=== PATIENT | male | born 1965 | race Caucasian/White ===

== ENCOUNTER 2019-03-12 14:46 | Emergency (ER) | payer MEDICARE ==
[~2019-03-12] VITALS: Ht 177.8 cm; Wt 65.3 kg
[~2019-03-12 14:46] MED LIST: ASPIRIN 81M81 MG/TA2 PO; XANAX 0.5MG0.5 MG PO
[2019-03-12] MEDS ORDERED: TYLENOL325 M1 PO (15:08)
[2019-03-12 15:37] LABS: EOS # 0.2 (0.04-0.40); EOS % 3.3 % (0.0-4.0); HEMATOCRIT 41.6 % (42.0-52.0); LYMPH# 2.7 (1.50-4.00); MEAN CELL VOLUME 92 fl (78-100); MEAN CORPUSCULAR HEMOGLOBIN 31 pg (27-31); MEAN CORPUSCULAR HGB CONC 34 g/dL (33-37); MEAN PLATELET VOLUME 9.5 fl (7.4-10.4); MONO # 0.6 (0.20-0.80); NEU # 3.7 (1.40-6.50); PLATELET COUNT 231 K/mm3 (130-400); RED BLOOD COUNT 4.54 M/mm3 (4.20-5.60); RED CELL DISTRIBUTION WIDTH 12.6 % (11.5-14.5); WHITE BLOOD COUNT 7.2 K/mm3 (4.8-10.8)
[2019-03-12 15:43] LABS: ALBUMIN 4.2 g/dL (3.5-5.0)
[2019-03-12 15:44] LABS: SODIUM 140 mmol/L (136-145)
[2019-03-12 15:45] LABS: CALCIUM 9.2 mg/dL (8.3-10.5)
[2019-03-12 15:46] LABS: GLUCOSE 96 mg/dL (75-110); TOTAL PROTEIN 7.1 g/dL (6.4-8.3)
[2019-03-12 15:47] LABS: CARBON DIOXIDE 24 mmol/L (22-29)
[2019-03-12 15:48] LABS: TOTAL BILIRUBIN 0.8 mg/dL (0.2-1.2)
[2019-03-12 15:51] LABS: AST-SGOT 16 U/L (5-34)
[2019-03-12 15:53] LABS: ALT/SGPT 14 U/L (0-55)
[2019-03-12 15:53] LABS: URINE APPEARANCE CLEAR; URINE BILIRUBIN NEGATIVE (NEGATIVE); URINE BLOOD TRACE (NEGATIVE); URINE COLOR YELLOW; URINE GLUCOSE NEGATIVE (NEGATIVE); URINE KETONE NEGATIVE (NEGATIVE); URINE LEUKOCYTE ESTERASE NEGATIVE (NEGATIVE); URINE NITRATE NEGATIVE (NEGATIVE); URINE PROTEIN(semi-quant) TRACE mg/dL (NEGATIVE); URINE UROBILINOGEN NORMAL (NORMAL)
[2019-03-12 15:54] LABS: URINE MUCUS PRESENT (NOT PRESENT); URINE WBC 0-1 /hpf (0-3)
[2019-03-12 16:02] LABS: TROPONIN-I < 0.03 ng/mL (<0.030)
[2019-03-12] MEDS ORDERED: PREDNISONE20 M1 PO (16:49)
[2019-03-12] MEDS ORDERED: CYCLOBENZAPRINE10 M1 PO (16:49)
[2019-03-12 17:07] VITALS: BP 117/76
== END 2019-03-12 17:08 | disposition home or self-care (01) ==
LOC: ED 14:46
PROVIDERS: Physician Assistant
DX: M54.10 Radiculopathy, site unspecified (principal); M54.5 Low back pain; R55 Syncope and collapse; H91.90 Unspecified hearing loss, unspecified ear; F17.210 Nicotine dependence, cigarettes, uncomplicated; Z79.82 Long term (current) use of aspirin; W10.9XXA Fall (on) (from) unspecified stairs and steps, initial encounter; Y99.0 Civilian activity done for income or pay
CPT/HCPCS: J1885; J2360; L0172; Q9967

== ENCOUNTER → 2019-07-01 | Outpatient (CLI) | payer MEDICARE ==
[~2019-07-01] MED LIST changes: +CYCLOBENZAPRINE10 M1 PO; +PREDNISONE20 M1 PO; +TYLENOL325 M1 PO
== END ==
LOC: RAD 09:00
DX: M54.5 Low back pain (principal); R31.29 Other microscopic hematuria

== ENCOUNTER 2020-07-22 12:18 | Emergency (ER) | payer MEDICARE ==
[2020-07-22 13:01] LABS: BASO # 0.02 (0.02-0.10); EOS # 0.25 (0.04-0.40); EOS % 3.7 % (0.0-4.0); HEMATOCRIT 41.4 % (42.0-52.0); LYMPH# 2.46 (1.50-4.00); MEAN CELL VOLUME 92 fl (78-100); MEAN CORPUSCULAR HEMOGLOBIN 31 pg (27-31); MEAN CORPUSCULAR HGB CONC 34 g/dL (33-37); MEAN PLATELET VOLUME 9.1 fl (7.4-10.4); MONO # 0.55 (0.20-0.80); NEU # 3.47 (1.40-6.50); PLATELET COUNT 211 K/mm3 (130-400); RED CELL DISTRIBUTION WIDTH 11.8 % (11.5-14.5); WHITE BLOOD COUNT 6.8 K/mm3 (4.8-10.8)
[2020-07-22 13:10] LABS: ALBUMIN 4.3 g/dL (3.5-5.0)
[2020-07-22 13:11] LABS: SODIUM 140 mmol/L (136-145)
[2020-07-22 13:13] LABS: GLUCOSE 98 mg/dL (75-110); TOTAL PROTEIN 7.1 g/dL (6.4-8.3)
[2020-07-22 13:14] LABS: CARBON DIOXIDE 24 mmol/L (22-29)
[2020-07-22 13:15] LABS: TOTAL BILIRUBIN 1.2 mg/dL (0.2-1.2)
[2020-07-22 13:18] LABS: AST-SGOT 18 U/L (5-34)
[2020-07-22 13:20] LABS: ALT/SGPT 14 U/L (0-55)
[2020-07-22 13:25] LABS: TROPONIN-I < 0.03 ng/mL (<0.030)
[2020-07-22 13:49] LABS: D-DIMER 0.26 mg/L FEU (0.15-0.50)
[2020-07-22 14:27] LABS: URINE APPEARANCE CLEAR; URINE BILIRUBIN NEGATIVE (NEGATIVE); URINE BLOOD 50 ery/uL (NEGATIVE); URINE COLOR YELLOW; URINE GLUCOSE NEGATIVE (NEGATIVE); URINE KETONE NEGATIVE (NEGATIVE); URINE LEUKOCYTE ESTERASE TRACE (NEGATIVE); URINE NITRATE NEGATIVE (NEGATIVE); URINE PROTEIN(semi-quant) 1+ mg/dL (NEGATIVE); URINE UROBILINOGEN NORMAL (NORMAL)
[2020-07-22 14:28] LABS: URINE MUCUS PRESENT (NOT PRESENT)
[2020-07-22 18:59] LABS: ALCOHOL IN-HOUSE < 10 mg/dL (<10)
[2020-07-22 20:42] VITALS: BP 113/79
== END 2020-07-22 20:42 | disposition short-term general hospital (02) ==
LOC: ED 12:18
PROVIDERS: Nurse Practitioner Family
DX: R00.1 Bradycardia, unspecified (principal); Q61.5 Medullary cystic kidney; R53.81 Other malaise; M54.2 Cervicalgia; G89.29 Other chronic pain; R51.9 Headache, unspecified; F17.210 Nicotine dependence, cigarettes, uncomplicated; Z20.822 Contact with and (suspected) exposure to COVID-19
CPT/HCPCS: J1885; J2360; J2405; J7030